=== PATIENT | female | born 1965 | race Caucasian/White ===

== ENCOUNTER 2016-07-05 23:28 | Emergency (ER) | payer OTHER ==
[~2016-07-05] VITALS: Ht 165.1 cm; Wt 89.1 kg
[2016-07-05 20:00] VITALS: BP 88/65; PULSE 78; RESP 20; TEMP 98.8; O2SAT 97
[~2016-07-05 23:28] MED LIST: METF500T PO
[2016-07-06] VITALS: BP 121/83; PULSE 76; RESP 18; TEMP 97.2; O2SAT 92
[2016-07-06] MEDS ORDERED: MECLIZINE HCL 25 MG TAB PO PRN (01:15)
--- NOTE | 2016-07-06 07:51 | MH ---
cc: DAMARIS FITZPATRICK DATE OF ADMISSION: 07/05/2016 ADMISSION DIAGNOSES 1. Vertigo with slight numbness and tingling of the left arm and leg and slight subjective weakness left arm and leg. Rule out minimal CVA. 2. Type 2 diabetes mellitus. PERTINENT HISTORY This is a 50-year-old white female who apparently awakened around 2 in the morning on 07/05/2016. She felt an balance and vertigo type symptoms. She would feel a spinning sensation with slight nausea but no vomiting. She states that the symptoms were worse when she would stand up or turn her head rapidly. She also felt some tingling and sensation on the left side of her body and she had a slight feeling as if her left arm and left leg felt a little bit weaker. She was seen over in [facility] and transferred to this facility. A CT brain scan done there was negative. Her blood work was unremarkable. She still has the symptoms of slight vertigo and imbalance. She got up to try to go the bathroom this morning and felt similar symptoms. She denies any actual weakness, feeling this morning. No tingling this morning. She has had no prior history of stroke. MEDICAL HISTORY 1. She has type 2 diabetes mellitus that she has been on treatment for a couple years now. 2. She denies any heart disease, hypertension, liver or kidney disease. No peptic ulcer disease or colon disease. No prior stroke or seizure. No cancer, no thyroid disease. PAST SURGICAL HISTORY Had one . ALLERGIES None. MEDICATIONS Metformin 500 mg one a day. FAMILY HISTORY Mother at 64 with CHF, had diabetes. Father at 82 with dementia. SOCIAL HISTORY She quit smoking about 4 years ago, smoked generally just three to four cigarettes a day for 30 years. Has an occasional beer. She is , has three children, works at a [employer]. REVIEW OF SYSTEMS GENERAL: No fever, chills or sweats. HEENT: States her vision felt maybe a little blurred but denied any double vision. No trouble swallowing. No sore throat. No runny nose. CARDIOVASCULAR: No chest pain or heart palpitations. PULMONARY: No cough, hemoptysis, wheezing. GI: Without complaints other than the nausea. : She has history of occasional incontinence. No dysuria or hematuria. MUSCULOSKELETAL: Without any joint complaints. SKIN: Without rash. NEURO: As mentioned. PHYSICAL EXAMINATION GENERAL: A pleasant female in no distress. VITAL SIGNS: BP is 121/83, respirations 76, pulse 18, temperature 97.2. HEENT: TMs clear. Pupils equal. Sclerae nonicteric. Nose without lesion. Mouth without inflammation or lesion. NECK: Without bruit. No JVD. HEART: Regular rate and rhythm. No murmur. LUNGS: Clear. ABDOMEN: Soft, nontender, no mass. EXTREMITIES: No edema. Pulses 2+. SKIN: Negative. NEURO: She is oriented x 3. She did get some slight vertigo type symptoms when we would turn her head or try to sit her up. She did not appear to have any focal weakness in her arms or legs on examination. Sensation appeared intact. On wyktly-ha-tjor testing she did have some past-pointing on the left side. The use of her left arm was on point with her right arm. Her Romberg sign was negative. LABORATORY FINDING She had a CT brain scan that was normal. White count was 6.5, hemoglobin 14.3 and platelets normal at 236,000. Sodium 137, potassium 3.9, chloride 101, CO2 27, BUN 12, creatinine 0.6. Her random glucose was 294. GFR 105, calcium and magnesium normal. ASSESSMENT 1. Patient with vertigo and slight tingling and numbness on the left side with subjective slight weakness on the left side with only questionable central vertigo, rule out minimal stroke. 2. Type 2 diabetes mellitus. PLAN 1. We will get an MRI of the brain. 2. We will order carotid ultrasound. 3. We will get a neurology consult. 4. I will go ahead and put her on aspirin 325 mg daily for now until Neurology evaluates her. 5. We will continue her on metformin for her diabetes and diabetic diet. MD GLORIA Guerra/SERGIO /6:32 AM /7:20 AM
[2016-07-06 08:00] VITALS: BP 111/76; PULSE 71; RESP 20; TEMP 97.5; O2SAT 99
[2016-07-06] MEDS ORDERED: metFORMIN HCL 500 MG TAB PO SCH ×2 (09:00)
[2016-07-06] MEDS: ASPIRIN EC 325 MG TABEC PO SCH (09:40)
[2016-07-06 09:56] LABS: ANION GAP 9 MEQ/L (5-15); BICARBONATE 26.4 MEQ/L (21.0-32.0); CHLORIDE 102 MEQ/L (98-107); POTASSIUM 3.9 MEQ/L (3.5-5.1); SODIUM (NA) 137 MEQ/L (136-145)
[2016-07-06 09:59] LABS: GLOMERULAR FILTRATION RATE 127 ML/MIN (>89)
[2016-07-06 10:06] LABS: BLOOD UREA NITROGEN 12 MG/DL (7-18)
--- NOTE | 2016-07-06 10:42 | RADHPO ---
EXAM DATE/TIME: 07/06/2016 08:27 [facility] COMPARISON: No previous studies available for comparison. INDICATIONS : Vertigo. MEDICAL HISTORY : Diabetic. SURGICAL HISTORY : section. ENCOUNTER: Initial ACUITY: 1 day PAIN SCORE: 0/10 LOCATION: Bilateral neck PEAK SYSTOLIC VELOCITIES (cm/sec): ICA/CCA RATIO: Right: 1.2 Left: 0.9 ICA: Right: 110 Left: 97 CCA: Right: 95 Left: 105 ECA: Right: 127 Left: 135 VERTEBRAL: Right: 53 antegrade Left: 36 antegrade Elevated flow velocities and ICA/CCA ratios have been found to correlate with increased degrees of vessel stenosis, calculated as percentage of diameter relative to a normal segment of distal ICA/CCA FINDINGS: RIGHT CAROTID: No significant stenosis is visualized. The waveforms are within normal limits. LEFT CAROTID: No significant stenosis is visualized. The waveforms are within normal limits. VERTEBRAL ARTERIES: Antegrade flow is seen in both vertebral arteries. MISCELLANEOUS: None. CONCLUSION: Negative for hemodynamically significant carotid stenosis. Doug Stafford MD FACR on July 06, 2016 at 10:40 Board Certified Radiologist. This report was verified electronically.
--- NOTE | 2016-07-06 11:25 | RADHPO ---
EXAM DATE/TIME: 07/06/2016 10:51 [facility] COMPARISON: No previous studies available for comparison. INDICATIONS : TIA. Left sided weakness. MEDICAL HISTORY : Diabetes mellitus type 2. SURGICAL HISTORY : section. ENCOUNTER: Initial ACUITY: 2 day PAIN SCORE: 3/10 LOCATION: Left cranial TECHNIQUE: Multiplanar, multisequence MRI of the brain was performed without contrast. FINDINGS: CEREBRUM: The ventricles are normal for age. No evidence of midline shift, mass lesion, hemorrha ge or acute infarction. No extraaxial fluid collections are seen. The pituitary gland and suprasell ar cistern are normal in configuration. WHITE MATTER: No significant signal abnormalities are seen in the white matter. POSTERIOR FOSSA: The cerebellum and brainstem are intact. The 4th ventricle is midline. The cere bellopontine angle is unremarkable. The cerebellar tonsils are normal in position. DIFFUSION IMAGING: No focal areas of restricted diffusion are seen. No evidence of acute infarct ion. EXTRACRANIAL: The visualized portions of the orbits and paranasal sinuses are unremarkable. CONCLUSION: Negative for acute process. I do not see evidence for significant ischemic changes. There is no significant mastoid disease. Vertebral arteries patent. Doug Stafford MD FACR on July 06, 2016 at 11:22 Board Certified Radiologist. This report was verified electronically.
[2016-07-06 12:00] VITALS: BP 115/74; PULSE 88; RESP 18; TEMP 96.7; O2SAT 96
[2016-07-06 13:45] LABS: HEMOGLOBIN A1a 1.1 %; HEMOGLOBIN Ao 75.2 %; HEMOGLOBIN F 1.7 %; HEMOGLOBIN LA1C 3.4 %; HEMOGLOBIN P3 5.1 %
[2016-07-06 16:00] VITALS: BP 104/72; PULSE 90; RESP 18; TEMP 98.4; O2SAT 96
[2016-07-06] MEDS ORDERED: ASPI1TAB69 PO (18:57)
[2016-07-06] MEDS ORDERED: MECL-62 PO (18:57)
[2016-07-06] MEDS ORDERED: METF500 PO (18:57)
[2016-07-06] MEDS: metFORMIN HCL 500 MG TAB PO SCH (19:00)
[2016-07-06 19:15] VITALS: BP 121/78; PULSE 71; RESP 18; TEMP 97.1; O2SAT 95
[2016-07-07] VITALS: BP 138/93; PULSE 70; RESP 16; TEMP 95.8; O2SAT 100
--- NOTE | 2016-07-07 05:22 | MB ---
cc: JUN AGUIRRE DATE OF CONSULTATION July 06, 2016 REASON FOR CONSULTATION "Vertigo with history of left-sided tingling and subjective weakness, past-pointing on rpflew-ef-nspd testing with the left arm." HISTORY OF PRESENT ILLNESS Ms. Nelson is a 50-year-old female with a past medicine medical history of diabetes mellitus who woke up around 2 in the morning on 07/05/2016 where she felt spinning of the head, dizziness and when she walked she states that she tended to lean to the left and was associated with accompanying nausea but no vomiting. When she stood up, she reports that she was leaning to the left. There was mild headache. Denies double vision, blurred vision, slurred speech, mild facial numbness and there was accompanying tingling of the left upper and lower extremity but no weakness. Initially she was in the [facility]. A head CT scan was done that was negative for an acute intracranial abnormality, then transferred to [facility]. Then she felt the same symptoms. The patient reports that the mid-to-late May she was diagnosed with a sinus problem for which she received antibiotics and cleared without reporting any earache or ear discharge. REVIEW OF SYSTEMS A 12-point review of systems is negative except for what is stated in the HPI. PAST MEDICAL HISTORY Diabetes mellitus. PAST SURGICAL HISTORY section. ALLERGIES None. MEDICATIONS Metformin. FAMILY HISTORY Mother at 64 of congestive heart failure. She was diabetic. Father at 82 and with dementia. SOCIAL HISTORY Ex-smoker; quit 4 years ago. Occasionally drinks beer; the last time she had beer was Wednesday the past week, three beers. PHYSICAL EXAMINATION GENERAL: Awake, alert, oriented, good historian, pleasant, anxious. HEENT: Atraumatic, normocephalic. Intact hearing. Intact vision. NECK: Soft. No carotid bruit. No signs of meningeal irritation. HEART: Regular rate and rhythm. LUNGS: Clear. ABDOMEN: Soft, nontender. EXTREMITIES: No edema. No cyanosis. Moves extremities equally NEUROLOGICAL EXAM: Awake, alert, oriented to time, person and place. Intact memory. Intact speech. Intact speech content. Cranial nerves II-XII are grossly intact. No diplopia. No nystagmus. No facial asymmetry. No slurred speech. Motor examination grossly normal, 5/5. No abnormal movements. Normal tone.Sensation is intact, bilateral and symmetrical to superficial pain and temperature. Reflexes 2+ bilateral and symmetrical. Sluggish bilateral ankles. Plantars are bilaterally downgoing. Nqqyzt-yk-lkhu, gkyz-ip-oakk are intact. Stance is normal. Negative Romberg's. No ataxia. Normal gait. PSYCHOLOGICAL: Intact mood and behavior. No hallucinations LABORATORY DATA - WBC 6.5, hemoglobin 14.3, platelet 236. Sodium 137, potassium 3.9, BUN 12, creatinine 0.6, random blood glucose 299. A1c 12.5. TSH normal at 0.731.Calcium 9.2. - HEAD CT SCAN Without contrast, was reported with no acute intracranial abnormality. - CAROTID ULTRASOUND Reported negative for hemodynamically significant carotid stenosis. DIAGNOSTIC IMPRESSION 1. TIA. This is the likely etiology given the abnormal blood sugar which is the risk factor with mild headache and left-sided sensory symptoms that resolved. 2. Questionable vertigo Less likely due to an ENT etiology given the sensory changes that cannot be explained by the chronic or post-infectious vertigo. 3. Diabetes/uncontrolled PLAN 1. The patient's neurological evaluation exam is nonfocal and unremarkable with full resolution of the symptoms. 2. Neurologic imaging is unremarkable. 3. Continue aspirin 81 mg. 4. I emphasized the importance of tight glycemic control, weight reduction and light exercise. The patient understands. 5. DVT prophylaxis with SCDs. 6. Management of the abnormal blood sugar by the attending team. 7. May follow-up with neurology as an outpatient in 3 weeks. 8. Please call for questions. Thank you for the opportunity to participate in the care of your patient. Jun Aguirre MD RGO/SSB /4:40 PM /5:06 AM [facility]IS
--- NOTE | 2016-07-07 06:57 | HHI.PR ---
Subjective Remarks No further vertigo. Walking without problems. Seen by neurology and cleared for discharge. He thought she likely had a TIA. His exam was negative. Objective Vitals Vital Signs Date Time Temp Pulse Resp B/P Pulse Ox O2 Delivery O2 Flow Rate FiO2 07/07/16 00:00 95.8 70 16 138/93 100 07/06/16 19:15 97.1 71 18 121/78 95 07/06/16 16:00 98.4 90 18 104/72 96 07/06/16 12:00 96.7 88 18 115/74 96 07/06/16 08:00 97.5 71 20 111/76 99 07/06/16 07/06/16 07/07/16 14:59 22:59 06:59 Intake Total 480 ml 360 ml 180 ml Balance 480 ml 360 ml 180 ml Intake Oral 480 ml 360 ml 180 ml # Voids 4 2 1 # Bowel Movements 1 0 0 Result Diagram: 07/06/16 0900 Other Results Laboratory Tests Test 07/06/16 09:00 Sodium Level 137 MEQ/L Potassium Level 3.9 MEQ/L Chloride Level 102 MEQ/L Carbon Dioxide Level 26.4 MEQ/L Anion Gap 9 MEQ/L Blood Urea Nitrogen 12 MG/DL Creatinine 0.51 MG/DL Estimat Glomerular Filtration 127 ML/MIN Rate Random Glucose 299 MG/DL Hemoglobin A1c 12.5 % Calcium Level 9.2 MG/DL Thyroid Stimulating Hormone 0.731 uIU/ML [facility] Last Impressions Brain MRI 07/06/16 0600 Signed Impressions: Service Date/Time: Wednesday, July 06, 2016 10:51 - CONCLUSION: Negative for acute process. I do not see evidence for significant ischemic changes. There is no significant mastoid disease. Vertebral arteries patent. Doug Stafford MD FACR Carotid Artery Ultrasound 07/06/16 0000 Signed Impressions: Service Date/Time: Wednesday, July 06, 2016 08:27 - CONCLUSION: Negative for hemodynamically significant carotid stenosis. Doug Stafford MD FACR Objective Remarks Exam: Obese female in no distress. HEENT: pupils equal, no scleral icterus, mouth negative Neck: No JVD, no bruit Heart: RRR with no murmur Lungs: Clear Abdomen: Soft, nontender, no masses Extremities: No edema, pulses good both feet Neuro: alert, oriented, normal motor, normal sensation A/P Assessment and Plan Assessment: --TIA --Vertigo and dysequilibrium--resolved --Type 2 diabetes mellitus--uncontrolled Plan: Patient is being discharged today. She is instructed to watch her diet closely for her diabetes control. I told her that her HgA1C was way above goal of < 7.0. Her Metformin dose is being increased to 500mg two twice a day and she will followup with her PCP in one week. For her TIA she will take an aspirin 81mg daily. She will followup with neurology (Dr Aguirre) in 3 weeks. She is encouraged to lose weight to help with her diabetes also. She can return to work on 07-09-16. Pillo Rodriguez MD July 07, 2016 06:57
[2016-07-07 08:00] VITALS: BP 105/81; PULSE 77; RESP 16; TEMP 96.3; O2SAT 96
[2016-07-07] MEDS: ASPIRIN EC 325 MG TABEC PO SCH (09:46)
[2016-07-07] MEDS: metFORMIN HCL 500 MG TAB PO SCH (09:49)
== END 2016-07-07 10:25 | disposition home or self-care (01) ==
LOC: PHEDDLT 23:28 → UNDOADMOB 23:40 → PH3A 23:40 → UNDODISOB 07-07 10:25 → PHEDDLT 07-07 10:25
DX: G45.9 Transient cerebral ischemic attack, unspecified (principal); E11.9 Type 2 diabetes mellitus without complications; Z79.84 Long term (current) use of oral hypoglycemic drugs; Z87.891 Personal history of nicotine dependence
CPT/HCPCS: 70450; 70551; 80048; 82948; 83036; 83735; 84443; 85025; 93005; 93880; 96374; 99285; J2405; 99281